=== PATIENT | male | born 1995 | race Caucasian/White ===

== ENCOUNTER 2018-10-14 01:10 | Emergency (ER) | payer SELFPAY ==
[~2018-10-14] VITALS: Ht 180.3 cm; Wt 62.6 kg
[2018-10-14 01:10] VITALS: BP_SYST 118
[2018-10-14 01:20] VITALS: BP_SYST 118
== END 2018-10-14 01:20 ==
LOC: SED 01:10
DX: Z04.1 Encounter for examination and observation following transport accident (principal); V43.52XA Car driver injured in collision with other type car in traffic accident, initial encounter; Y93.89 Activity, other specified; Y92.410 Unspecified street and highway as the place of occurrence of the external cause; Y99.8 Other external cause status
CPT/HCPCS: 99283